=== PATIENT | male | born 1985 | race African-American/Black ===

== ENCOUNTER 2017-08-19 12:40 | Emergency (ER) | payer SELFPAY ==
[~2017-08-19] VITALS: Ht 177.8 cm; Wt 78.0 kg
[2017-08-19] MEDS ORDERED: SODIUM CHLORIDE 0.9% 1,000 ML IV ONE (14:00)
[2017-08-19 14:21] LABS: BASOPHILS % 1.1 % (0.0-2.0); EOSINOPHILS % 7.4 % (0.0-5.0); HEMATOCRIT. 30.8 % (42.0-52.0); HEMOGLOBIN. 9.1 g/dL (14.0-18.0); LYMPHOCYTES % 27.6 % (20.0-50.0); MEAN CORPUSCULAR HEMOGLOBIN 21.8 pg (28.0-32.0); MEAN CORPUSCULAR VOLUME 73.6 fL (80.0-94.0); MEAN PLATELET VOLUME 8.5 fl (7.4-10.4); MONOCYTES % 14.4 % (2.0-8.0); NEUTROPHILS % 49.5 % (40.0-76.0); PLATELET 293 x1000/uL (130-400); RED BLOOD CELL COUNT 4.19 mill/uL (4.7-6.1); RED CELL DISTRIBUTION WIDTH 24.7 % (11.6-14.6)
[2017-08-19 14:28] LABS: CHLORIDE 110 mEq/L (98-107)
[2017-08-19 14:34] LABS: PROTHROMBIN TIME 10.7 sec (9.4-11.6)
[2017-08-19 14:35] LABS: AMMONIA < 25 uMol/L (<32)
[2017-08-19 14:38] LABS: CARBON DIOXIDE 28 mEq/L (21-32); CREATINE KINASE 104 IU/L (39-308); ETHANOL BLOOD < 10 mg/dL
[2017-08-19 14:47] LABS: PLATELET ESTIMATE NORMAL
[2017-08-19 16:42] LABS: CLARITY URINE CLEAR (CLEAR); COLOR URINE YELLOW (YELLOW); KETONES URINE NEGATIVE (NEGATIVE); LEUKOCYTE ESTERASE URINE NEGATIVE (NEGATIVE); NITRITE URINE NEGATIVE (NEGATIVE); OCCULT BLOOD URINE NEGATIVE (NEGATIVE); PROTEIN URINE NEGATIVE (NEGATIVE); SPECIFIC GRAVITY URINE 1.036 (1.005-1.030); UROBILINOGEN URINE 0.2 E.U./dL (0.2-1.0)
[2017-08-19 16:53] LABS: *AMPHETAMINES SCREEN URINE NEGATIVE (NEGATIVE); *BARBITURATES SCREEN URINE NEGATIVE (NEGATIVE); *BENZODIAZEPINES SCREEN URINE NEGATIVE (NEGATIVE); *COCAINE SCREEN URINE NEGATIVE (NEGATIVE); CANNABINOID URINE SCREEN NEGATIVE (NEGATIVE); METHADONE URINE SCREEN NEGATIVE (NEGATIVE); OPIATES URINE SCREEN NEGATIVE (NEGATIVE); PHENCYCLIDINE URINE SCREEN NEGATIVE (NEGATIVE)
[2017-08-19 19:40] VITALS: BP 126/72
== END 2017-08-19 20:21 | disposition home or self-care (01) ==
LOC: ER 12:55 → EDBD 12:55 → ER 20:21
DX: G93.40 Encephalopathy, unspecified (principal); E16.2 Hypoglycemia, unspecified; R00.1 Bradycardia, unspecified; D64.9 Anemia, unspecified; I45.10 Unspecified right bundle-branch block; F12.10 Cannabis abuse, uncomplicated; R94.31 Abnormal electrocardiogram [ECG] [EKG]; Z98.890 Other specified postprocedural states
CPT/HCPCS: 36415; 70450; 80053; 80305; 80307; 80329; 81003; 82140; 82550; 82962; 85025; 85610; 93005; 99285; G0482; Z7610; J7030